=== PATIENT | male | born 1970 | race Caucasian/White ===

== ENCOUNTER 2018-08-03 17:52 | Emergency (ER) | payer OTHER ==
[2018-08-03 18:11] VITALS: TEMP 98; BMI 44.3
--- NOTE | 2018-08-03 22:53 | PDOC ---
History of Present Illness - General Chief Complaint: Drug Screen Stated Complaint: DRUG SCREEN Time Seen by Provider: 08/03/18 20:27 History Source: Patient Exam Limitations: No Limitations Past History - Past Medical History Allergies/Adverse Reactions: Allergies Allergy/AdvReac Type Severity Reaction Status Date / Time No Known Allergies Allergy Verified 08/03/18 18:09 - Suicide/Smoking/Psychosocial Hx Smoking History: Unknown if ever smoked Hx Alcohol Use: No Drug/Substance Use Hx: Yes *Physical Exam - Vital Signs Last Vital Signs Temp Pulse Resp BP Pulse Ox 98.0 F 101 H 18 93/63 97 08/03/18 18:09 08/03/18 18:09 08/03/18 18:09 08/03/18 18:09 08/03/18 18:09 - Physical Exam General Appearance: No: Apparent Distress HEENT: positive: [place] Respiratory/Chest: positive: Lungs Clear, Normal Breath Sounds. negative: Respiratory Distress Cardiovascular: positive: Regular Rhythm, Regular Rate, S1, S2. negative: Murmur Gastrointestinal/Abdominal: positive: Normal Bowel Sounds, Soft. negative: Tender, Distended, Guarding, Rebound Musculoskeletal: positive: Other (B/L AKA amputation (stump site dry, no erythema, no wound, no discharge)) Integumentary: positive: Normal Color Neurologic: positive: Alert, Normal Mood/Affect Moderate Sedation - Procedure Monitoring Vital Signs: Procedure Monitoring Vital Signs Temperature 98.0 F 08/03/18 18:09 Pulse Rate 101 H 08/03/18 18:09 Respiratory Rate 18 08/03/18 18:09 Blood Pressure 93/63 08/03/18 18:09 O2 Sat by Pulse Oximetry (%) 97 08/03/18 18:09 Medical Decision Making - Medical Decision Making 47 y/o M with hx of DM, B/L AKA amputation (L AKA was done 2 years ago, R AKA was done 2 months ago), HTN presents from [facility] rehab (has been there for the past month) as was found to have 18 packs of white substance in his room. Patient was sent here to go to [facility] detox. 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 Denies fever, sob, cp, abd pain, n/v. Spoke to [facility] as patient refusing to go to detox Patient A&Ox3 and has capacity to make his own decisions Stable for d/c 08/03/18 22:48 *DC/Admit/Observation/Transfer Diagnosis at time of Disposition: Substance abuse - Discharge Dispostion Disposition: HOME Condition at time of disposition: Stable Decision to Admit order: No - Referrals Referrals: Malcolm Green MD [Primary Care Provider] - - Patient Instructions Printed Discharge Instructions: DI for Opioid Addiction, Narcotic Abuse Additional Instructions: Thank you for choosing [facility]. It was a pleasure taking care of you. You were sent from [facility] for admission to inpatient rehab You have refused to go to rehab You are currently clear to return to [facility]. Return to the Emergency Department if your symptoms worsen or persist or other concerning symptoms. - Post Discharge Activity
[2018-08-04 00:23] VITALS: BP 103/64; PULSE 99
== END 2018-08-04 01:01 ==
LOC: JER 17:52
DX: F19.10 Other psychoactive substance abuse, uncomplicated (principal); E11.9 Type 2 diabetes mellitus without complications; Z89.612 Acquired absence of left leg above knee; Z89.611 Acquired absence of right leg above knee
CPT/HCPCS: 99282-25